=== PATIENT | male | born 1960 | race Caucasian/White ===

== ENCOUNTER 2016-09-26 19:26 | Emergency (ER) | payer MEDICARE, OTHER ==
[~2016-09-26 19:26] MED LIST: ASPIR-LOW81 MG PO; COUMADIN6 MG PO
[2016-09-26 21:03] LABS: HEMOGLOBIN 13.3 gm/dl (14.0-17.5); RED BLOOD COUNT 4.51 M/UL (4.20-5.50); WHITE BLOOD COUNT 6.5 K/UL (4.5-11.0)
[2016-09-26 21:23] LABS: BUN/CREATININE RATIO 11 (0-10)
[2017-01-17] MEDS ORDERED: CLINDAMYCIN HC300 MG PO (15:01)
[2017-01-17] MEDS ORDERED: NAPROXEN500 MG PO (15:02)
[2017-01-17] MEDS ORDERED: DEXILANT60 MG PO (15:03)
[2017-01-17] MEDS ORDERED: DULOXETINE HCL60 MG PO (15:04)
[2017-01-17] MEDS ORDERED: ZANTAC 150 MG150 MG PO (15:05)
[2017-01-17] MEDS ORDERED: NEURONTIN 300300 MG PO (15:05)
[2017-01-17] MEDS ORDERED: OXYCODONE HCL10 MG PO (15:06)
[2017-01-17] MEDS ORDERED: DIAZEPAM10 MG PO (15:07)
[2017-01-17] MEDS ORDERED: ZOFRAN ODT 4 MG4 MG PO (15:08)
[2017-01-17] MEDS ORDERED: ATORVASTATIN CA40 MG PO (15:13)
[2017-01-17] MEDS ORDERED: TIZANIDINE HCL4 M1 PO (15:15)
[2017-01-17] MEDS ORDERED: FLONASE 0.05% N16 GM (15:17)
[2017-01-20] MEDS ORDERED: OMNICEF 300 MG300 MG PO (15:15)
== END 2016-09-27 00:15 | disposition home or self-care (01) ==
LOC: ER1 19:26
PROVIDERS: Family Medicine
DX: R07.9 Chest pain, unspecified (principal); R11.10 Vomiting, unspecified
CPT/HCPCS: 71020; 80053; 82550; 82553; 83874; 84484; 85025; 93005; 96374; 99285; J2405

== ENCOUNTER 2016-10-05 16:32 | Emergency (ER) | payer MEDICARE, OTHER ==
[2016-10-05 18:45] LABS: HEMOGLOBIN 14.9 gm/dl (14.0-17.5); RED BLOOD COUNT 5.06 M/UL (4.20-5.50)
[2017-01-17] MEDS ORDERED: CLINDAMYCIN HC300 MG PO (15:01)
[2017-01-17] MEDS ORDERED: NAPROXEN500 MG PO (15:02)
[2017-01-17] MEDS ORDERED: DEXILANT60 MG PO (15:03)
[2017-01-17] MEDS ORDERED: DULOXETINE HCL60 MG PO (15:04)
[2017-01-17] MEDS ORDERED: ZANTAC 150 MG150 MG PO (15:05)
[2017-01-17] MEDS ORDERED: NEURONTIN 300300 MG PO (15:05)
[2017-01-17] MEDS ORDERED: OXYCODONE HCL10 MG PO (15:06)
[2017-01-17] MEDS ORDERED: DIAZEPAM10 MG PO (15:07)
[2017-01-17] MEDS ORDERED: ZOFRAN ODT 4 MG4 MG PO (15:08)
[2017-01-17] MEDS ORDERED: ATORVASTATIN CA40 MG PO (15:13)
[2017-01-17] MEDS ORDERED: TIZANIDINE HCL4 M1 PO (15:15)
[2017-01-17] MEDS ORDERED: FLONASE 0.05% N16 GM (15:17)
[2017-01-20] MEDS ORDERED: OMNICEF 300 MG300 MG PO (15:15)
== END 2016-10-05 19:55 | disposition home or self-care (01) ==
LOC: ER1 16:32
PROVIDERS: Physician Assistant Medical
DX: M10.9 Gout, unspecified (principal); Z86.711 Personal history of pulmonary embolism; Z86.718 Personal history of other venous thrombosis and embolism; Z88.8 Allergy status to other drugs, medicaments and biological substances; Z91.041 Radiographic dye allergy status; Z79.01 Long term (current) use of anticoagulants; Z79.899 Other long term (current) drug therapy
CPT/HCPCS: 36415; 73564; 73610; 84550; 85025; 85610; 99283

== ENCOUNTER 2020-11-05 01:18 | Observation (INO) | payer MEDICARE, OTHER ==
[~2020-11-05] VITALS: Ht 172.7 cm; Wt 104.3 kg
[~2020-11-05 01:18] MED LIST changes: +ACID CONTROLLER20 MG PO; +CLINDAMYCIN HC300 MG PO; +COUMADIN 5MG TAB5 MG PO; +DEXILANT60 MG PO; +DIAZEPAM10 MG PO; +DULOXETINE HCL60 MG PO; +FLEXERIL 10 MG10 MG PO; +FLONASE 0.05% N16 GM; +HYDROCHLOROTH12.5 M1 PO; +IBUPROFEN600 MG PO; +LIPITOR80 MG PO; +MELOXICAM15 MG PO; +NAPROXEN500 MG PO; +NEURONTIN 300300 MG PO; +OMEPRAZOLE20 MG PO; +OMNICEF 300 MG300 MG PO; +ULORIC 40 MG TA40 MG PO; +ZANTAC 150 MG150 MG PO; +ZOFRAN ODT 4 MG4 MG PO
[2020-11-05 04:13] LABS: HEMOGLOBIN 13.5 gm/dl (14.0-17.5); RED BLOOD COUNT 4.55 M/UL (4.20-5.50)
[2020-11-05 04:28] LABS: BUN/CREATININE RATIO 14 (0-10)
[2020-11-05] MEDS ORDERED: REMERON 15 MG T15 MG PO (10:46)
[2020-11-05] MEDS ORDERED: XARELTO20 MG PO (10:48)
[2020-11-05] MEDS ORDERED: VRAYLAR1.5 MG PO (10:48)
[2020-11-05] MEDS ORDERED: NEURONTIN300 MG PO ×2 (10:50→10:58)
[2020-11-05] MEDS ORDERED: COZAAR 50MG TAB50 MG PO (10:51)
[2020-11-05] MEDS ORDERED: PROVENTIL HFA6.7 GM INH (10:52)
[2020-11-05] MEDS ORDERED: COLCHICINE 0.60.6 MG PO (11:03)
[2020-11-05] MEDS ORDERED: OXYCODONE HCL10 MG PO (15:06)
[2020-11-05] MEDS ORDERED: TIZANIDINE HCL4 M1 PO (15:15)
[2020-11-05] MEDS ORDERED: CARAFATE 1 GM TA1 GM PO (22:03)
[2020-11-05] MEDS ORDERED: COLCHICINE0.6 M1 PO (22:12)
[2020-11-06 06:20] LABS: HEMOGLOBIN 13.2 gm/dl (14.0-17.5); RED BLOOD COUNT 4.41 M/UL (4.20-5.50)
[2020-11-06 06:24] LABS: WHITE BLOOD COUNT 8.4 K/UL (4.5-11.0)
[2020-11-06 06:43] LABS: BUN/CREATININE RATIO 17 (0-10)
[2020-11-06] MEDS ORDERED: SYMBICORT 80-41 INHA INH (11:49)
[2020-11-06] MEDS ORDERED: PREDNISONE 20 M20 MG PO (11:49)
[2020-11-06] MEDS ORDERED: LEVOFLOXACIN500 MG PO (11:49)
== END 2020-11-06 12:40 | disposition home or self-care (01) ==
LOC: ER1 01:18 → CDU 08:13 → MED SURG 4 10:44
PROVIDERS: Physician Assistant Medical; ADMIT Internal Medicine Infectious Disease
DX: J20.9 Acute bronchitis, unspecified (principal); J45.909 Unspecified asthma, uncomplicated; I10 Essential (primary) hypertension; E78.5 Hyperlipidemia, unspecified; D68.61 Antiphospholipid syndrome; Z20.822 Contact with and (suspected) exposure to COVID-19; Z87.891 Personal history of nicotine dependence; Z86.73 Personal history of transient ischemic attack (TIA), and cerebral infarction without residual deficits; Z88.8 Allergy status to other drugs, medicaments and biological substances; Z91.041 Radiographic dye allergy status; Z87.19 Personal history of other diseases of the digestive system
CPT/HCPCS: 0240U; 36415; 36600; 71045; 80048; 80053; 82550; 82553; 82803; 83735; 83874; 83880; 84484; 85025; 85027; 93005; 94640; 94664; 94760; 96374; 96375; 96376; 99285; G0378; J0696; J1200; J2405; J2930